=== PATIENT | female | born 1990 | race Caucasian/White ===

== ENCOUNTER 2017-01-03 11:02 | Emergency (ER) | payer OTHER ==
[~2017-01-03] VITALS: Ht 172.7 cm; Wt 83.2 kg
[~2017-01-03 11:02] MED LIST: LISD40 PO; PHEN12.5 PR; PROM25TA5 PO
[2017-01-03 11:08] VITALS: BP 140/93; PULSE 91; RESP 18; TEMP 98.1; O2SAT 99
--- NOTE | 2017-01-03 11:40 | PD ---
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 Patient states that she is late for her menstruation period this month. Patient states that her last menstruation period was November 23, 2016. Patient started having vaginal bleeding 2 days ago. Patient states that she was passing blood and tissue. Patient denies abdominal cramping or pelvic pain. Patient denies any chest pain or shortness of breath. Patient denies any back pain. Patient denies any dysuria or frequency. PFSH Past Medical History ADD: Yes Diminished Hearing: No Immunizations Current: Yes Influenza Vaccination: No ?: LMP: 11/23/16 Past Surgical History Surgical History: No Previous Surgery Social History Alcohol Use: No Tobacco Use: No Substance Use: No Allergies-Medications (Allergen,Severity, Reaction): Coded Allergies: No Known Allergies (Verified , 01/03/17) Reported Meds & Prescriptions Reported Meds & Active Scripts Active Phenergan 25 mg (Promethazine HCl) 25 Mg Tab 12.5 Mg PO Q6H PRN Phenergan (Promethazine HCl) 12.5 Mg Sup 12.5 Mg OK Q6H PRN FOR NAUSEA USE IF UNABLE TO TAKE ORAL MEDICATION Reported Vyvanse 40 Mg Cap (Lisdexamfetamine Dimesylate) 40 Mg Cap 40 Mg PO DIRECTED PRN Review of Systems General / Constitutional: No: Fever Eyes: No: Visual changes HENT: No: Headaches Cardiovascular: No: Chest Pain or Discomfort Respiratory: No: Shortness of Breath Gastrointestinal: No: Abdominal Pain Genitourinary: Positive: Vaginal Bleeding, No: Dysuria Musculoskeletal: No: Pain Skin: No Rash Neurologic: No: Weakness Psychiatric: No: Depression Endocrine: No: Polydipsia Hematologic/Lymphatic: No: Easy Bruising Physical Exam Narrative GENERAL: Well-nourished, well-developed patient. SKIN: Focused skin assessment warm/dry. HEAD: Normocephalic. EYES: No scleral icterus. No injection or drainage. NECK: Supple, trachea midline. No JVD or lymphadenopathy. CARDIOVASCULAR: Regular rate and rhythm without murmurs, gallops, or rubs. RESPIRATORY: Breath sounds equal bilaterally. No accessory muscle use. GASTROINTESTINAL: Abdomen soft, non-tender, nondistended. MUSCULOSKELETAL: No cyanosis, or edema. BACK: Nontender without obvious deformity. No CVA tenderness. BAR TACKER exam: Patient has moderate amount of blood in the vaginal vault. No cervical motion tenderness. Uterus is nonenlarged and nontender on palpation. No adnexal mass or tenderness. Data Data Last Documented VS Vital Signs Date Time Temp Pulse Resp B/P Pulse Ox O2 Delivery O2 Flow Rate FiO2 01/03/17 11:08 98.1 91 18 140/93 99 Orders Beta Hcg (Quant/Titer) (01/03/17 11:33) Complete Blood Count With Diff (01/03/17 11:33) Basic Metabolic Panel (Bmp) (01/03/17 11:33) Complete Rh (01/03/17 11:33) Iv Access Insert/Monitor (01/03/17 11:33) Labs Laboratory Tests Test 01/03/17 11:47 White Blood Count 6.0 TH/MM3 Red Blood Count 4.12 MIL/MM3 Hemoglobin 12.6 GM/DL Hematocrit 37.2 % Mean Corpuscular Volume 90.1 FL Mean Corpuscular Hemoglobin 30.7 PG Mean Corpuscular Hemoglobin 34.0 % Concent Red Cell Distribution Width 12.9 % Platelet Count 360 TH/MM3 Mean Platelet Volume 6.7 FL Neutrophils (%) (Auto) 66.9 % Lymphocytes (%) (Auto) 26.3 % Monocytes (%) (Auto) 5.5 % Eosinophils (%) (Auto) 1.0 % Basophils (%) (Auto) 0.3 % Neutrophils # (Auto) 4.0 TH/MM3 Lymphocytes # (Auto) 1.6 TH/MM3 Monocytes # (Auto) 0.3 TH/MM3 Eosinophils # (Auto) 0.1 TH/MM3 Basophils # (Auto) 0.0 TH/MM3 CBC Comment DIFF FINAL Differential Comment Sodium Level 141 MEQ/L Potassium Level 3.9 MEQ/L Chloride Level 106 MEQ/L Carbon Dioxide Level 29.2 MEQ/L Anion Gap 6 MEQ/L Blood Urea Nitrogen 10 MG/DL Creatinine 0.72 MG/DL Estimat Glomerular Filtration 100 ML/MIN Rate Random Glucose 97 MG/DL Calcium Level 8.6 MG/DL Human Chorionic Gonadotropin, 1 MIU/ML Quant [facility] Medical Decision Making Medical Screen Exam Complete: Yes Emergency Medical Condition: Yes Differential Diagnosis Differential diagnosis including menorrhagia, threatened AB, incomplete AB, completed AB, ectopic . Narrative Course 26-year-old female with vaginal bleeding. Patient's late for her menstruation period this month. Diagnosis Primary Impression: Menorrhagia Qualified Code: N92.0 - Menorrhagia with regular cycle Patient Instructions: General Instructions Additional Instructions: [id number] vitamin with iron. 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 Encourage by mouth fluid. Return if persistent bleeding or worsening of the bleeding. Med/Other Pt SpecificInfo: No Meds Exist/No RX given Disposition: 01 DISCHARGE HOME Condition: Stable Graham Hernandez MD Jan 03, 2017 11:40
[2017-01-03 11:52] LABS: BASOPHIL % 0.3 % (0.0-2.0); EOSINOPHIL # 0.1 TH/MM3 (0-0.4); HEMATOCRIT 37.2 % (35.0-46.0); HEMO FLAGS DIFF FINAL; LYMPH % 26.3 % (9.0-44.0); LYMPHOCYTE # 1.6 TH/MM3 (1.0-4.8); MEAN CELL VOLUME 90.1 FL (80.0-100.0); MEAN CORPUSCULAR HEMOGLOBIN 30.7 PG (27.0-34.0); MONO % 5.5 % (0.0-8.0); NEUT % 66.9 % (16.0-70.0); PLATELET COUNT 360 TH/MM3 (150-450); RED BLOOD COUNT 4.12 MIL/MM3 (4.00-5.30); RED CELL DISTRIBUTION WIDTH 12.9 % (11.6-17.2)
[2017-01-03 11:58] LABS: POTASSIUM 3.9 MEQ/L (3.5-5.1)
[2017-01-03 12:01] LABS: BICARBONATE 29.2 MEQ/L (21.0-32.0)
[2017-01-03 12:59] VITALS: BP 131/83
== END 2017-01-03 13:07 | disposition home or self-care (01) ==
LOC: PHED 11:02
DX: N92.0 Excessive and frequent menstruation with regular cycle (principal)
CPT/HCPCS: 80048; 84702; 85025; 86901; 99284

== ENCOUNTER 2018-03-20 19:29 | Emergency (ER) | payer OTHER ==
[2018-03-20] MEDS ORDERED: LACTATED RINGER'S 1000 ML INJ 1,000 ML IV SCH (20:18)
--- NOTE | 2018-03-20 20:30 | PD ---
HPI Chief Complaint s/p fall Date Seen: Mar 20, 2018 Time Seen: 20:21 Travel History International Travel<30 Days: No Contact w/Intl Traveler<30Days: No Known Affected Area: No History of Present Illness HPI 27y/o @ 29.2wks. She has PNC with Dr. Wakefield. She presents s/p fall 15mins prior to arrival. She states that she was carrying her dinner plate to the sink and slipped on fluid on the floor. She fell forward, landing on her elbow and knee. She is uncertain whether or not she hit her abdomen. She immediately got in the car and came to [place]. She denies LOF, VB, ctx. +FM. is c/b Rh neg (s/p Rhogam), gallstones, and 1st trimester VB. Weeks Gestation: 29 Para: 0 : 2 History Past Medical History Narrative Medical gallstones Obstetric History Obstetric History 1. biochemical 2. current Past Surgical History Narrative Surgical breast lumpectomies and reconstruction b/l Family History Family History: Negative Social History Alcohol Use: No Tobacco Use: No Substance Abuse: No Allergies-Medications (Allergen,Severity, Reaction): Coded Allergies: No Known Allergies (Verified , 01/03/17) Home Meds Active Scripts Promethazine 25 mg (Phenergan 25 mg) 25 Mg Tab, 12.5 MG PO Q6H Y for NAUSEA OR VOMITING, #7 TAB Prov:LAQUITA MAURICE M.D. 12/06/14 Promethazine Hcl (Phenergan) 12.5 Mg Sup, 12.5 MG IA Q6H Y for NAUSEA OR VOMITING, #3 SUP FOR NAUSEA USE IF UNABLE TO TAKE ORAL MEDICATION Prov:LAQUITA MAURICE M.D. 12/06/14 Reported Medications Lisdexamfetamine Dimesylate (Vyvanse 40 Mg Cap) 40 Mg Cap, 40 MG PO DIRECTED Y for ADD, CAP 12/06/14 Review of Systems Except as stated in HPI: all other systems reviewed are Neg Physical Exam Narrative General: well developed, well nourished, no acute distress HEENT: normocephalic atraumatic, extraocular movements intact, neck supple Abdomen: soft, gravid, nontender, nondistended Uterus: fundus above umbilicus Extremities: full range of motion Skin: normal coloration, no rashes, no suspicious skin lesions noted Neurologic: cranial nerves 2-12 grossly intact, normal muscle tone, normal gait Psychiatric: normal mood and affect, appropriate FHTs: 140s, +accels, age appropriate mild variable decels, moderate variability , reactive B[place]y: occasional ctx which changed to irritability Data Data Vital Signs Reviewed: Yes Orders Orders Vital Signs (Adult) .ON ADMISSION (03/20/18 20:18) ^ Labor Status (03/20/18 20:18) ^ Non Stress Test (03/20/18 20:18) Cbc No Diff, Includes Plts (03/20/18 20:18) Kleihauer Betke ( Hgb) (03/20/18 20:18) Lactated Ringer's 1000 Ml Inj (Lr 1000 M (03/20/18 20:18) Fibrinogen (03/20/18 20:18) MDM Plan 27y/o @ 29.2wks s/p fall. -- FHTs cat 1 -- toco with ctx -- IVF bolus, CBC, fibrinogen -- Rh neg s/p rhogam 2wks ago -- monitor a minimum of 4hrs Update: -- all labs stable, fibrinogen >500, KB neg -- ctx/irritability resolved -- FHTs have remained cat 1 -- pt stable for d/c home Diagnosis Diagnosis: Primary Impression: 29 weeks gestation of Additional Impression: Status post fall ePdrito Ahn MD Mar 20, 2018 20:30
[2018-03-20 21:14] LABS: HEMATOCRIT 34.6 % (35.0-46.0); HEMOGLOBIN 11.8 GM/DL (11.6-15.3); MEAN CELL VOLUME 89.8 FL (80.0-100.0); MEAN CORPUSCULAR HEMOGLOBIN 30.8 PG (27.0-34.0); MEAN CORPUSCULAR HGB CONC 34.2 % (32.0-36.0); PLATELET COUNT 295 TH/MM3 (150-450); RED BLOOD COUNT 3.85 MIL/MM3 (4.00-5.30); RED CELL DISTRIBUTION WIDTH 13.5 % (11.6-17.2); WHITE BLOOD COUNT 9.4 TH/MM3 (4.0-11.0)
--- NOTE | 2018-03-21 18:20 | HHI.PR ---
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 Wakefield, she is a pt of his and i do not have access to her outpatient EMR. Recieved pt phone call today, pt states she is 26.5 weeks by her stated HARIS. is uncomplicated other than Rh neg status She states she presented to L&D last night after a fall and observed for 4-5hrs b/c of uterine contractions that she states she never subjectively felt. She called b/c she began to have light pink spotting, no abdominal pain, + FM, denies any new trauma or sexually activity, she states she did not have her cervix checked when she presented for her fall last night. I stated that probably normal but if bleeding continues, increases, notices decreased or absent movement, or begins to have abdominal pain then should come to L&D for evaluation. She verbalized understanding. Bharath Garcia MD Mar 21, 2018 18:20
== END 2018-03-20 23:28 | disposition home or self-care (01) ==
LOC: HOBED 19:29
DX: O26.893 Other specified pregnancy related conditions, third trimester (principal); Z3A.29 29 weeks gestation of pregnancy; W01.0XXA Fall on same level from slipping, tripping and stumbling without subsequent striking against object, initial encounter
CPT/HCPCS: 83030; 85027; 85384; 99283

== ENCOUNTER 2018-06-04 19:17 | Inpatient (IN) ==
[2018-06-04] MEDS ORDERED: Zolpidem Tartrate 5 MG Tablet PO PRN (20:12)
[2018-06-04] MEDS ORDERED: fentaNYL Citrate Inj 100 MCG/2 ML Ampul IV.PUSH PRN ×2 (20:57)
[2018-06-04] MEDS ORDERED: Sod Chloride 0.9% Inj 1,000 ML IV.CONT PRN (20:57)
[2018-06-04] MEDS ORDERED: Sodium Chlor 0.9% Inj 500 ML IV.SIG PRN (20:57)
[2018-06-04 20:58] LABS: Bacteria,Urine Rare /hpf; Bilirubin,Urine Negative (Negative); Clarity,Urine Hazy (Clear); Color,Urine Yellow (Yellw/Straw); Glucose,Urine (UA) Negative (Negative); Leukocyte Esterase,Urine Small (Negative); Mucus,Urine Few /lpf (Occasional); Nitrite,Urine Negative (Negative); Specific Gravity,Urine 1.023 (1.002-1.035); Squamous Epithelial Cell,Urine 4 /hpf (0-5)
[2018-06-04] MEDS ORDERED: Citric Acid/Sodium Citrate Liq 30 ML UDC PO SCH (21:00)
[2018-06-04 21:05] LABS: Baso % (Auto) 0.2 % (0.0-2.0); Eos # (Auto) 0.1 th/mm3 (0.0-0.4); Eos % (Auto) 1.3 % (0.0-4.0); Hematocrit 33.2 % (35.0-46.0); Hemoglobin 11.3 gm/dL (11.6-15.3); Mean Corpuscular HGB Conc 34.2 % (32.0-36.0); Mean Corpuscular Hemoglobin 31.1 pg (27.0-34.0); Mean Corpuscular Volume 91.1 fL (80.0-100.0); Mean Platelet Volume 8.5 fL (7.0-11.0); Mono # (Auto) 0.7 th/mm3 (0.0-0.9); Mono % (Auto) 6.2 % (0.0-8.0); Neut # (Auto) 7.9 th/mm3 (1.8-7.7); Neut % (Auto) 73.3 % (16.0-70.0); Platelet Count 256 th/mm3 (150-450); Red Blood Count 3.64 mil/mm3 (4.00-5.30); Red Cell Distribution Width 13.1 % (11.6-17.2); White Blood Count 10.7 th/mm3 (4.0-11.0)
[2018-06-04 21:11] LABS: Amphetamine Urine With Conf Neg (Neg); Benzodiazepine Urine With Conf Neg (Neg)
[2018-06-04] MEDS ORDERED: Oxytocin 30 Units/500ml Premix 30 UNITS/500 ML BAG IV.SIG ONE (22:00)
[2018-06-05] MEDS ORDERED: Oxytocin 30 Units/500ml Premix 30 UNITS/500 ML BAG IV.SIG PRN (03:00)
[2018-06-05] MEDS ORDERED: Acetaminophen 325 MG Tablet PO PRN ×2 (03:05→11:07)
[2018-06-05] MEDS ORDERED: fentaNYL 2MCG-Bupiv 0.125% Epi 150 ML EPIDURAL ONE (06:22)
[2018-06-05] MEDS ORDERED: Lidocaaine 1.5%/Epinephrine 1:200,000 PF Inj 5 ML Amp ONE (06:29)
[2018-06-05] MEDS ORDERED: fentaNYL 2MCG-Bupiv 0.125% Epi 150 ML EPIDURAL PRN (07:15)
[2018-06-05] MEDS ORDERED: fentaNYL Citrate Inj 100 MCG/2 ML Ampul EPIDURAL ONE (07:15)
[2018-06-05] MEDS ORDERED: Witch Hazel 50%/Glyderin 12.5% 40 Pad Jar RECTAL PRN (11:07)
[2018-06-05] MEDS ORDERED: Benzocaine 20% Top Spray 60 ML Can TOPICAL PRN (11:07)
[2018-06-05] MEDS ORDERED: Naloxone Inj 0.4 MG/ML Vial IV.PUSH PRN (11:07)
[2018-06-05] MEDS ORDERED: Oxytocin 30 Units/500ml Premix 30 UNITS/500 ML BAG IV.CONT PRN (11:07)
[2018-06-05] MEDS ORDERED: Bisacodyl 10 MG Supp RECTAL PRN (11:07)
[2018-06-05] MEDS ORDERED: Zolpidem Tartrate 5 MG Tablet PO PRN (11:07)
--- NOTE | 2018-06-05 11:13 | P.OBDELI ---
Weeks Gestation: 40 Patient Started Active Labor: Yes Medical Induction of Labor: Yes Artificial Rupture of Membrane: No Anesthesia: Epidural Episiotomy: none Vaginal Delivery: Normal Presentation: Occiput anterior Nuchal Cord: None Delayed Cord Clamping (45 sec): Yes Placenta: Spontaneous delivery, Intact, 3 vessel cord, Cord pH Laceration: Perineal Repair: Vicryl running Female A Weight: 3.232 kg score (1 min): 8 score (5 min): 9 (beautiful delivery of Sasha. Small 2nd degree)
--- NOTE | 2018-06-05 12:25 | P.HP ---
History of Present Illness Service: labor and delivery Primary Care Physician: NOT REQUIRED Chief Complaint: admitted for induction of labor History of Present Illness: pt 40 weeks G2 Spont AB 1 GBS negative admitted for cytotec induction - Diagnosis (1) Elective induction of labor planned Inpatient Certification: I certify that the inpatient services were ordered in accordance with Medicare regulations governing the order. This includes certification that hospital inpatient services are reasonable and necessary and in the case of services not specified as inpatient-only under 42 CFR 419.22(n), that they are appropriately provided as inpatient services in accordance to with the 2-midnight benchmark under 43 CFR 412.3(e) Estimated Total Length of Stay (Days): 3 Plans for Post Hospital Care: Home Review of Systems All other systems reviewed negative except as stated in HPI PMFSH - History History Provided By: Medical Record - Medical History Medical History: Medical History (Last Updated 06/05/18 @ 12:17 by ALDAIR Macdonald) Anemia affecting Cholecystitis - Surgical History Surgical History: Surgical History (Last Updated 06/05/18 @ 12:18 by ALDAIR Macdonald) History of breast biopsy - Family History Family History: Family History (Last Updated 06/05/18 @ 12:20 by ALDAIR Macdonald) Mother FHx: factor V Leiden mutation Aunt Hypertension Leukemia Mother Hypertension - Tobacco History Second Hand Smoke Exposure: No Tobacco Use In Past 30 Days: No Smoking Status: Never smoker - Alcohol History How Often Do You Have a Drink Containing Alcohol: Never - Travel History History of Recent Travel: No Medications and Allergies Active Medications: Active Medications Acetaminophen (Tylenol) 650 mg PO Q4H PRN PRN Reason: PAIN SCALE 1 TO 2 Al Hydroxide/Mg Hydroxide (Milk Of Ty Liq) 30 ml PO Q12H PRN PRN Reason: Mild Constipation Benzocaine (Americaine 20% Top [place]) 1 spray TOPICAL Q4H PRN PRN Reason: For Perineum Discomfort Bisacodyl (Dulcolax Supp) 10 mg RECTAL DAILY PRN PRN Reason: SEVERE CONSITIPATION Diphtheria/Pertussis/Tetanus Vacc (Boostrix Vaccine Inj) 0.5 ml IM .ONCE ONE Stop: 06/05/18 16:01 Ephedrine Sulfate (Ephedrine/Ns Syringe) 10 mg IV.PUSH UNSCH PRN PRN Reason: SEE LABEL COMMENTS Stop: 06/06/18 07:15 Oxytocin (Pitocin 30 Units/Ns 500 Ml Premix) 30 units in 500 mls @ 2 mls/hr IV.SIG TITRATE PRN; Protocol PRN Reason: For induction of labor Last Admin: 06/05/18 02:57 Dose: 2 milliunit/min, 2 mls/hr Fentanyl/Bupivacaine/Sodium Chlor (Fentanyl 2 Mcg-Bupiv 0.125% Epi) 150 mls @ 10 mls/hr EPIDURAL PRN PRN PRN Reason: for Labor Pain Oxytocin (Pitocin 30 Units/Ns 500 Ml Premix) 30 units in 500 mls @ 100 mls/hr IV.CONT UNSCH PRN PRN Reason: Heavy bleeding Ibuprofen (Motrin) 800 mg PO Q8H PRN PRN Reason: For Cramping Lactulose (Lactulose Liq) 30 ml PO DAILY PRN PRN Reason: SEVERE CONSITIPATION Measles/Mumps/Rubella Vaccine Live (M-M-R Ii Vaccine Inj) 0.5 ml SQ .ONCE ONE Stop: 06/05/18 16:01 Miscellaneous Information (Misc Information) 1 each OTHER UNSCH PRN PRN Reason: SEE LABEL COMMENTS Stop: 06/06/18 07:15 Miscellaneous Information (Misc Information) 1 each OTHER UNSCH PRN PRN Reason: SEE LABEL COMMENTS Stop: 06/06/18 07:15 Naloxone HCl (Narcan Inj) 0.1 mg IV.PUSH Q2M PRN PRN Reason: for opiate reversal Ondansetron HCl (Zofran Odt) 4 mg PO Q6H PRN PRN Reason: NAUSEA OR VOMITING Vit/Calcium/Iron/Folic Ac (Stuartnatal Plus 3) 1 tab PO DAILY [place] Senna/Docusate Sodium (Katerina-Colace) 1 tab PO BID [place] Sennosides (Senokot) 17.2 mg PO Q12H PRN PRN Reason: Moderate Constipation Sodium Chloride (Ns Flush) 2 ml IV.FLUSH BID [place] Sodium Chloride (Ns Flush) 2 ml IV.FLUSH PRN PRN PRN Reason: FLUSH AFTER USING IV ACCESS Witch Valeria/Glycerin (Tucks Pads) 1 applicatio RECTAL QID PRN PRN Reason: HEMORRHOIDS Zolpidem Tartrate (Ambien) 5 mg PO HS PRN PRN Reason: SLEEP Allergies Allergy/AdvReac Type Severity Reaction Status Date / Time No Known Allergies Allergy Uncoded 01/03/17 11:11 Home Medications Medication Instructions Recorded Confirmed Type Complete 1 tab PO DAILY 05/21/18 06/04/18 History Exam Vital signs: Vital Signs 06/04/18 20:00 06/04/18 21:45 06/04/18 23:24 Temperature 98.0 F 97.8 F Pulse Rate 81 83 Respiratory Rate 18 16 18 Blood Pressure 134/81 131/74 06/04/18 23:25 06/05/18 03:00 06/05/18 03:42 Temperature 98.0 F Pulse Rate 81 71 70 Respiratory Rate 16 14 Blood Pressure 137/77 134/84 117/73 06/05/18 03:45 06/05/18 04:06 06/05/18 04:30 Temperature 98.0 F Pulse Rate 66 67 Respiratory Rate 16 Blood Pressure 137/82 139/76 06/05/18 05:00 06/05/18 05:15 06/05/18 05:30 Temperature 98.4 F Pulse Rate 71 74 Respiratory Rate 16 Blood Pressure 131/89 134/85 06/05/18 06:00 06/05/18 06:31 06/05/18 06:40 Temperature 97.9 F Pulse Rate 76 87 91 H Respiratory Rate 14 Blood Pressure 124/75 128/76 147/79 H 06/05/18 06:45 06/05/18 06:50 06/05/18 06:55 Temperature Pulse Rate 88 83 88 Respiratory Rate 16 Blood Pressure 138/72 130/78 122/86 06/05/18 07:00 06/05/18 07:11 06/05/18 07:30 Temperature Pulse Rate 84 88 76 Respiratory Rate Blood Pressure 131/71 97/77 L 116/81 06/05/18 07:40 06/05/18 08:00 06/05/18 08:30 Temperature Pulse Rate 75 75 75 Respiratory Rate 17 18 16 Blood Pressure 122/74 117/74 06/05/18 08:49 06/05/18 08:55 06/05/18 09:01 Temperature 97.6 F Pulse Rate 73 72 76 Respiratory Rate 17 Blood Pressure 126/81 99/72 L 06/05/18 09:30 06/05/18 09:40 06/05/18 10:00 Temperature Pulse Rate 75 75 Respiratory Rate 17 18 Blood Pressure 131/88 06/05/18 10:10 06/05/18 10:25 06/05/18 10:40 Temperature Pulse Rate 74 82 107 H Respiratory Rate Blood Pressure 115/54 L 144/55 H 06/05/18 10:45 06/05/18 10:50 06/05/18 11:05 Temperature Pulse Rate 98 H 90 91 H Respiratory Rate 17 Blood Pressure 143/80 H 101/54 L 06/05/18 11:15 06/05/18 11:20 06/05/18 11:30 Temperature 97.6 F Pulse Rate 80 74 Respiratory Rate 18 Blood Pressure 98/71 L 120/74 06/05/18 11:50 06/05/18 12:00 Temperature Pulse Rate 79 Respiratory Rate 17 Blood Pressure 86/59 L Intake & Output 06/04/18 06/05/18 06/05/18 18:59 06:59 18:59 Weight 93.44 kg - Constitutional no acute distress - Routine HEENT Exam Head: Present: normocephalic - Routine Respiratory Exam Present: CTA bilaterally - Routine Cardiovascular Exam Present: RRR, S1, S2 - Routine Abdominal Exam Present: soft Comments: gravid - Routine Skin Exam Present: intact - Routine Neurological Exam Present: alert, oriented X3 Results - Labs CBC & Chem 7: 06/04/18 20:15 Labs: Laboratory Results - last 24 hr 06/04/18 06/04/18 06/04/18 20:15 20:15 20:15 WBC 10.7 RBC 3.64 L Hgb 11.3 L Hct 33.2 L MCV 91.1 MCH 31.1 MCHC 34.2 RDW 13.1 Plt Count 256 MPV 8.5 Neut % (Auto) 73.3 H Lymph % (Auto) 19.0 [place] % (Auto) 6.2 Eos % (Auto) 1.3 Baso % (Auto) 0.2 Neut # (Auto) 7.9 H Lymph # (Auto) 2.0 [place] # (Auto) 0.7 Eos # (Auto) 0.1 Baso # (Auto) 0.0 WBC Differential . Differential Comment Auto diff final Urine Color Urine Clarity Urine pH Ur Specific [place] Urine Protein Urine Glucose (UA) Urine Ketones Urine Occult Blood Urine Nitrate Urine Bilirubin Urine Urobilinogen Ur Leukocyte Esterase Urine WBC Ur Squamous Epith Cells Urine Bacteria Urine Mucus Micro UA Comment Ur Microscopic Review Urine Culture Comments Urine Opiates Screen Neg Ur Barbiturates Screen Neg Ur Amphetamine Screen Neg U Benzodiazepines Scrn Neg Urine Cocaine Screen Neg U Cannabinoids Screen Neg Blood Type A Negative Blood Type Recheck Required 06/04/18 20:15 WBC RBC Hgb Hct MCV MCH MCHC RDW Plt Count MPV Neut % (Auto) Lymph % (Auto) [place] % (Auto) Eos % (Auto) Baso % (Auto) Neut # (Auto) Lymph # (Auto) [place] # (Auto) Eos # (Auto) Baso # (Auto) WBC Differential Differential Comment Urine Color Yellow Urine Clarity Hazy H Urine pH 6.0 Ur Specific [place] 1.023 Urine Protein Negative Urine Glucose (UA) Negative Urine Ketones Negative Urine Occult Blood Negative Urine Nitrate Negative Urine Bilirubin Negative Urine Urobilinogen 2.0 H Ur Leukocyte Esterase Small H Urine WBC 5 Ur Squamous Epith Cells 4 Urine Bacteria Rare H Urine Mucus Few H Micro UA Comment Culture not ind Ur Microscopic Review Not Reportable Urine Culture Comments Culture not ind Urine Opiates Screen Ur Barbiturates Screen Ur Amphetamine Screen U Benzodiazepines Scrn Urine Cocaine Screen U Cannabinoids Screen Blood Type Blood Type Recheck Caprini VTE Risk Assessment Caprini VTE Risk Assessment: No/Low Risk (score <= 1) Caprini Risk Assessment Model: Point Value = 1 Point Value = 2 Point Value = 3 Point Value = 5 Age 41-60 Minor surgery BMI > 25 kg/m2 Swollen legs Varicose veins or History of unexplained or recurrent spontaneous Oral contraceptives or hormone replacement Sepsis (< 1 month) Serious lung disease, including pneumonia (< 1 month) Abnormal pulmonary function Acute myocardial infarction Congestive heart failure (< 1 month) History of inflammatory bowel disease Medical patient at bed rest Age 61-74 Arthroscopic surgery Major open surgery (> 45 min) Laparoscopic surgery (> 45 min) Malignancy Confined to bed (> 72 hours) Immobilizing plaster cast Central venous access Age >= 75 History of VTE Family history of VTE Factor V Leiden Prothrombin [id number] Lupus anticoagulant Anticardiolipin antibodies Elevated serum homocysteine Heparin-induced thrombocytopenia Other congenital or acquired thrombophilia Stroke (< 1 month) Elective arthroplasty Hip, pelvis, or leg fracture Acute spinal cord injury (< 1 month) Prophylaxis Regimen: Total Risk Factor Score Risk Level Prophylaxis Regimen 0-1 Low Early ambulation 2 Moderate Order ONE of the following: *Sequential Compression Device (SCD) *Heparin 5000 units SQ BID 3-4 Higher Order ONE of the following medications: *Heparin 5000 units SQ TID *Enoxaparin/Lovenox 40 mg SQ daily (WT < 150 kg, CrCl > 30 mL/min) *Enoxaparin/Lovenox 30 mg SQ daily (WT < 150 kg, CrCl > 10-29 mL/min) *Enoxaparin/Lovenox 30 mg SQ BID (WT < 150 kg, CrCl > 30 mL/min) AND/OR *Sequential Compression Device (SCD) 5 or more Highest Order ONE of the following medications: *Heparin 5000 units SQ TID (Preferred with Epidurals) *Enoxaparin/Lovenox 40 mg SQ daily (WT < 150 kg, CrCl > 30 mL/min) *Enoxaparin/Lovenox 30 mg SQ daily (WT < 150 kg, CrCl > 10-29 mL/min) *Enoxaparin/Lovenox 30 mg SQ BID (WT < 150 kg, CrCl > 30 mL/min) AND *Sequential Compression Device (SCD) Assessment and Plan - Assessment (1) Elective induction of labor planned Status: Acute Plan: - Plan routine care Code Status: full code Discharge Plannin days
[2018-06-05] MEDS ORDERED: Measles/Mumps/Rubella Vaccine Inj 0.5 ML Vial SQ ONE (16:00)
[2018-06-05] MEDS ORDERED: Diphtheria/Tetanus/Pertussis Vaccine Inj 0.5 ML Syringe IM ONE (16:00)
[2018-06-06] MEDS: Senna/Docusate Sodium 8.6/50 MG Tablet PO SCH ×3 (04:35→21:57)
[2018-06-06] MEDS: Prenatal Vit/Ca/Iron/Folic Acid Tablet PO SCH (09:22)
--- NOTE | 2018-06-06 09:34 | P.PNOB ---
Subjective Post day: 1 Objective Vital Signs/I&O: Vital Signs 06/05/18 09:30 06/05/18 09:40 06/05/18 10:00 Temperature Pulse Rate 75 75 Respiratory Rate 17 18 Blood Pressure 131/88 06/05/18 10:10 06/05/18 10:25 06/05/18 10:40 Temperature Pulse Rate 74 82 107 H Respiratory Rate Blood Pressure 115/54 L 144/55 H 06/05/18 10:45 06/05/18 10:50 06/05/18 11:05 Temperature Pulse Rate 98 H 90 91 H Respiratory Rate 17 Blood Pressure 143/80 H 101/54 L 06/05/18 11:15 06/05/18 11:20 06/05/18 11:30 Temperature 97.6 F Pulse Rate 80 74 Respiratory Rate 18 Blood Pressure 98/71 L 120/74 06/05/18 11:50 06/05/18 12:00 06/05/18 12:31 Temperature Pulse Rate 79 80 Respiratory Rate 17 Blood Pressure 86/59 L 134/77 06/05/18 12:35 06/05/18 12:50 06/05/18 12:55 Temperature 98.1 F Pulse Rate 81 77 Respiratory Rate 18 18 Blood Pressure 143/66 H 06/05/18 17:30 06/05/18 19:47 06/06/18 08:00 Temperature 98.3 F 98.6 F 97.8 F Pulse Rate 88 78 74 Respiratory Rate 16 18 20 Blood Pressure 141/78 H 138/77 133/76 Result Diagrams: 06/04/18 20:15 Objective Remarks: GENERAL: Well-nourished, well-developed patient. CARDIOVASCULAR: Regular rate and rhythm without murmurs, gallops, or rubs. RESPIRATORY: Breath sounds equal bilaterally. No accessory muscle use. ABDOMEN/GI: Abdomen soft, non-tender. Fundus: Firm, non-tender at umbilicus. GENITOURINARY: Light to moderate bleeding. EXTREMITIES: No cyanosis or edema, non-tender, without signs of DVT. Medications and IVs: Active Medications Acetaminophen (Tylenol) 650 mg PO Q4H PRN PRN Reason: PAIN SCALE 1 TO 2 Al Hydroxide/Mg Hydroxide (Milk Of Magn[place] Liq) 30 ml PO Q12H PRN PRN Reason: Mild Constipation Benzocaine (Americaine 20% Top [place]) 1 spray TOPICAL Q4H PRN PRN Reason: For Perineum Discomfort Bisacodyl (Dulcolax Supp) 10 mg RECTAL DAILY PRN PRN Reason: SEVERE CONSITIPATION Oxytocin (Pitocin 30 Units/Ns 500 Ml Premix) 30 units in 500 mls @ 2 mls/hr IV.SIG TITRATE PRN; Protocol PRN Reason: For induction of labor Last Admin: 06/05/18 02:57 Dose: 2 milliunit/min, 2 mls/hr Fentanyl/Bupivacaine/Sodium Chlor (Fentanyl 2 Mcg-Bupiv 0.125% Epi) 150 mls @ 10 mls/hr EPIDURAL PRN PRN PRN Reason: for Labor Pain Oxytocin (Pitocin 30 Units/Ns 500 Ml Premix) 30 units in 500 mls @ 100 mls/hr IV.CONT UNSCH PRN PRN Reason: Heavy bleeding Ibuprofen (Motrin) 800 mg PO Q8H PRN PRN Reason: For Cramping Lactulose (Lactulose Liq) 30 ml PO DAILY PRN PRN Reason: SEVERE CONSITIPATION Naloxone HCl (Narcan Inj) 0.1 mg IV.PUSH Q2M PRN PRN Reason: for opiate reversal Ondansetron HCl (Zofran Odt) 4 mg PO Q6H PRN PRN Reason: NAUSEA OR VOMITING Vit/Calcium/Iron/Folic Ac (Stuartnatal Plus 3) 1 tab PO DAILY [facility] Last Admin: 06/06/18 09:22 Dose: 1 tab Senna/Docusate Sodium (Katerina-Colace) 1 tab PO BID [facility] Last Admin: 06/06/18 09:22 Dose: 1 tab Sennosides (Senokot) 17.2 mg PO Q12H PRN PRN Reason: Moderate Constipation Sodium Chloride (Ns Flush) 2 ml IV.FLUSH BID [facility] Last Admin: 06/06/18 04:36 Dose: Not Given Sodium Chloride (Ns Flush) 2 ml IV.FLUSH PRN PRN PRN Reason: FLUSH AFTER USING IV ACCESS Witch Valeria/Glycerin (Tucks Pads) 1 applicatio RECTAL QID PRN PRN Reason: HEMORRHOIDS Zolpidem Tartrate (Ambien) 5 mg PO HS PRN PRN Reason: SLEEP Assessment and Plan - Diagnosis (1) Elective induction of labor planned Status: Resolved (2) (normal spontaneous vaginal delivery) Code(s): O80 - Encounter for full-term uncomplicated delivery Status: Acute Plan: routine care - Plan POD #1 pt doing well not taking any medication for pain at this time, advised Motrin for her cramping and bonding with infant routine care Discharge Planning: dc home tomorrow
--- NOTE | 2018-06-07 08:49 | P.PNOB ---
Subjective Post day: 2 Interval history: Pt feeling well. no pain, min to mod lochia Objective Vital Signs/I&O: Vital Signs 06/06/18 20:00 Temperature 97.8 F Pulse Rate 82 Respiratory Rate 18 Blood Pressure 134/77 Result Diagrams: 06/04/18 20:15 Objective Remarks: GENERAL: Well-nourished, well-developed patient. CARDIOVASCULAR: Regular rate and rhythm without murmurs, gallops, or rubs. RESPIRATORY: Breath sounds equal bilaterally. No accessory muscle use. ABDOMEN/GI: Abdomen soft, non-tender. Fundus: Firm, non-tender at umbilicus. GENITOURINARY: Light to moderate bleeding. EXTREMITIES: No cyanosis or edema, non-tender, without signs of DVT. Medications and IVs: Active Medications Acetaminophen (Tylenol) 650 mg PO Q4H PRN PRN Reason: PAIN SCALE 1 TO 2 Al Hydroxide/Mg Hydroxide (Milk Of Magnesia Liq) 30 ml PO Q12H PRN PRN Reason: Mild Constipation Benzocaine (Americaine 20% [place]) 1 spray TOPICAL Q4H PRN PRN Reason: For Perineum Discomfort Bisacodyl (Dulcolax Supp) 10 mg RECTAL DAILY PRN PRN Reason: SEVERE CONSITIPATION Oxytocin (Pitocin 30 Units/Ns 500 Ml Premix) 30 units in 500 mls @ 2 mls/hr IV.SIG TITRATE PRN; Protocol PRN Reason: For induction of labor Last Admin: 06/05/18 02:57 Dose: 2 milliunit/min, 2 mls/hr Fentanyl/Bupivacaine/Sodium Chlor (Fentanyl 2 Mcg-Bupiv 0.125% Epi) 150 mls @ 10 mls/hr EPIDURAL PRN PRN PRN Reason: for Labor Pain Oxytocin (Pitocin 30 Units/Ns 500 Ml Premix) 30 units in 500 mls @ 100 mls/hr IV.CONT UNSCH PRN PRN Reason: Heavy bleeding Ibuprofen (Motrin) 800 mg PO Q8H PRN PRN Reason: For Cramping Lactulose (Lactulose Liq) 30 ml PO DAILY PRN PRN Reason: SEVERE CONSITIPATION Naloxone HCl (Narcan Inj) 0.1 mg IV.PUSH Q2M PRN PRN Reason: for opiate reversal Ondansetron HCl (Zofran Odt) 4 mg PO Q6H PRN PRN Reason: NAUSEA OR VOMITING Vit/Calcium/Iron/Folic Ac (Stuartnatal Plus 3) 1 tab PO DAILY [facility] Last Admin: 06/06/18 09:22 Dose: 1 tab Senna/Docusate Sodium (Katerina-Colace) 1 tab PO BID [facility] Last Admin: 06/06/18 21:57 Dose: 1 tab Sennosides (Senokot) 17.2 mg PO Q12H PRN PRN Reason: Moderate Constipation Sodium Chloride (Ns Flush) 2 ml IV.FLUSH BID [facility] Last Admin: 06/06/18 22:10 Dose: Not Given Sodium Chloride (Ns Flush) 2 ml IV.FLUSH PRN PRN PRN Reason: FLUSH AFTER USING IV ACCESS Witch Valeria/Glycerin (Tucks Pads) 1 applicatio RECTAL QID PRN PRN Reason: HEMORRHOIDS Zolpidem Tartrate (Ambien) 5 mg PO HS PRN PRN Reason: SLEEP Assessment and Plan - Plan POD #2 pt doing well not taking any medication for pain at this time, advised Motrin for her cramping and bonding with routine care Discharge Planning: dc home today
[2018-06-07] MEDS: Prenatal Vit/Ca/Iron/Folic Acid Tablet PO SCH (09:03)
[2018-06-07] MEDS: Senna/Docusate Sodium 8.6/50 MG Tablet PO SCH (09:03)
[2018-06-07 09:13] VITALS: BP 121/73; PULSE 83; RESP 20; TEMP 98.2
== END 2018-06-07 10:36 | disposition home or self-care (01) ==
LOC: H2E 19:17 → H1EA 06-05 13:38
PROVIDERS: ADMIT Obstetrics & Gynecology; ATTEND Obstetrics & Gynecology